=== PATIENT | female | born 1955 | race Caucasian/White ===

== ENCOUNTER 2023-02-28 09:22 | Emergency (ER) | payer MEDICARE ==
[~2023-02-28] VITALS: Ht 162.6 cm; Wt 56.7 kg
--- OUTSIDE RECORDS SUMMARY | ~2023-02-28 | XMS | Continuity of Care Document ---
Demographics + + + | Address | [address] | | | [place] [address] | + + + | Preferred Language | Unknown | + + + | Marital Status | | + + + | Scientologist Affiliation | Unknown | + + + | Race | White | + + + | Ethnic Group | Not or | + + + Author + + + | Author | [facility] | + + + | Organization | [facility] | + + + | Address | [address] | | | [place] [address] | + + + | Phone | | + + + Care Team Providers + + + + | Care Central Control Room Operator Name | Role | Phone | + + + + Unavailable | Unavailable | + + + + Unavailable | Unavailable | + + + + Allergies and Intolerances + + + + + + | date | description | facility | reaction | severity | + + + + + + | (no date) | No Known | [facility] | (no reaction) | (no severity) | | | Allergies | | | | + + + + + + Encounters No information. Functional Status No information. Immunizations + + + + | date | description | facility | + + + + | 2023-02-03 00:00 | Tdap | [facility] | + + + + Medications + + + + | date | description | facility | + + + + | 2023-02-03 00:00 | HYDROCODONE | [facility] | | | BIT/ACETAMINOPHEN | | + + + + Problems + + + + | date | description | facility | + + + + | 2022-05-28 15:50 | VENOUS INSUFFICIENCY | [facility] | | | (CHRONIC) (PERIPHERAL) | | + + + + | 2022-05-28 15:50 | PAIN IN LEFT LEG | [facility] | + + + + | 2023-02-03 00:00 | Fracture of neck of right | [facility] | | | humerus | | + + + + | 2023-02-03 00:00 | Skin tear of right forearm | [facility] | | | without complication | | + + + + | 2023-02-03 21:01 | PAIN IN RIGHT SHOULDER | [facility] | + + + + | 2023-02-03 21:01 | UNSP DISP FX OF SURGICAL | [facility] | | | NECK OF RIGHT HUMERUS, IN | | + + + + | 2023-02-03 21:01 | LACERATION W/O FOREIGN | [facility] | | | BODY OF RIGHT FOREARM, INIT | | | | | | + + + + | 2023-02-03 21:01 | FALL SAME LEV FROM | [facility] | | | SLIP/TRIP W STRIKE AGNST | | | | UNSP O | | + + + + Procedures No information. Results/Labs +--------+--------+ +---------+--------+---------+ | test | date | facility | value | unit | notes | +--------+--------+ +---------+--------+---------+ + + | Result panel 1 | + + + + + +--------+ + + | | 2023-02-03 | [facility] | 10.0 | (missing) | (missing) | | (unavailable | [facility] | | | | + + + +--------+ + + + + | Result panel 2 | + + + + + +--------+ + + | | 2023-02-03 | [facility] | 79.2 | (missing) | (missing) | | (unavailable | :: | [facility] | | | | + + + +--------+ + + + + | Result panel 3 | + + + + + +--------+ + + | | 2023-02-03 | [facility] | 12.0 | (missing) | (missing) | | (unavailable | ::07 | [facility] | | | | + + + +--------+ + + + + | Result panel 4 | + + + + + +-------+ + + | | 2023-02-03 | [facility] | 7.4 | (missing) | (missing) | | (unavailable | ::07 | [facility] | | | | + + + +-------+ + + + + | Result panel 5 | + + + + + +-------+ + + | | 2023-02-03 | [facility] | 0.0 | (missing) | (missing) | | (unavailable | ::07 [facility] | | | | + + + +-------+ + + + + | Result panel 6 | + + + + + +-------+ + + | | 2023-02-03 | [facility] | 1.4 | (missing) | (missing) | | (unavailable | ::07 [facility] | | | | + + + +-------+ + + + + | Result panel 7 | + + + + + +-------+---------+ + | | 2023-02-03 | [facility] | 131 | mg/dL | (missing) | | (unavailable | [facility] | | | | + + + +-------+---------+ + + + | Result panel 8 | + + + + + +-----+---------+ + | | 2023-02-03 | [facility] | 4 | mg/dL | (missing) | | (unavailable | [facility] | | | | + + + +-----+---------+ + + + | Result panel 9 | + + + + + +--------+---------+ + | | 2023-02-03 | [facility] | 0.51 | mg/dL | (missing) | | (unavailable | 21::07 | [facility] | | | | + + + +--------+---------+ + + + | Result panel 10 | + + + + + +-------+ + + | | 2023-02-03 | [facility] | 101 | (missing) | (missing) | | (unavailable | ::07 | [facility] | | | | + + + +-------+ + + + + | Result panel 11 | + + + + + +--------+ + + | | 2023-02-03 | [facility] | 7.84 | (missing) | (missing) | | (unavailable | ::07 | [facility] | | | | + + + +--------+ + + + + | Result panel 12 | + + + + + +--------+ + + | | 2023-02-03 | [facility] | 3.86 | (missing) | (missing) | | (unavailable | ::07 | [facility] | | | | + + + +--------+ + + + + | Result panel 13 | + + + + + +-------+ + + | | 2023-02-03 | [facility] | 128 | (missing) | (missing) | | (unavailable | ::07 | [facility] | | | | + + + +-------+ + + + + | Result panel 14 | + + + + + +-------+ + + | | 2023-02-03 | [facility] | 3.6 | (missing) | (missing) | | (unavailable | ::07 | [facility] | | | | + + + +-------+ + + + + | Result panel 15 | + + + + + +------+ + + | | 2023-02-03 | [facility] | 98 | (missing) | (missing) | | (unavailable | 21:05:07 [facility] | | | | + + + +------+ + + + + | Result panel 16 | + + + + + +------+ + + | | 2023-02-03 | [facility] | 23 | (missing) | (missing) | | (unavailable | 21:05:07 [facility] | | | | + + + +------+ + + + + | Result panel 17 | + + + + + +--------+ + + | | 2023-02-03 | [facility] | 10.6 | (missing) | (missing) | | (unavailable | 21:05:07 [facility] | | | | + + + +--------+ + + + + | Result panel 18 | + + + + + +-------+---------+ + | | 2023-02-03 | [facility] | 7.9 | mg/dL | (missing) | | (unavailable | 21:05:07 [facility] | | | | + + + +-------+---------+ + + + | Result panel 19 | + + + + + +-------+ + + | | 2023-02-03 | [facility] | 6.3 | (missing) | (missing) | | (unavailable | 21:05:07 [facility] | | | | + + + +-------+ + + + + | Result panel 20 | + + + + + +-------+ + + | | 2023-02-03 | [facility] | 2.3 | (missing) | (missing) | | (unavailable | 21:05:07 [facility] | | | | + + + +-------+ + + + + | Result panel 21 | + + + + + +-------+ + + | | 2023-02-03 | [facility] | 4.0 | (missing) | (missing) | | (unavailable | 21:05:07 [facility] | | | | + + + +-------+ + + + + | Result panel 22 | + + + + + +--------+ + + | | 2023-02-03 | [facility] | 0.58 | (missing) | (missing) | | (unavailable | 21:05:07 [facility] | | | | + + + +--------+ + + + + | Result panel 23 | + + + + + +--------+ + + | | 2023-02-03 | [facility] | 12.5 | (missing) | (missing) | | (unavailable | 21:05:07 [facility] | | | | + + + +--------+ + + + + | Result panel 24 | + + + + + +-------+ + + | | 2023-02-03 | [facility] | 0.3 | (missing) | (missing) | | (unavailable | 21:05:07 [facility] | | | | + + + +-------+ + + + + | Result panel 25 | + + + + + +------+ + + | | 2023-02-03 | [facility] | 56 | (missing) | (missing) | | (unavailable | 21[facility]05:07 [facility] | | | | + + + +------+ + + + + | Result panel 26 | + + + + + +------+ + + | | 2023-02-03 | [facility] | 27 | (missing) | (missing) | | (unavailable | 21[facility]05:07 [facility] | | | | + + + +------+ + + + + | Result panel 27 | + + + + + +-------+ + + | | 2023-02-03 | [facility] | 175 | (missing) | (missing) | | (unavailable | 21[facility]05:07 [facility] | | | | + + + +-------+ + + + + | Result panel 28 | + + + + + +-------+ + + | | 2023-02-03 | [facility] | 171 | (missing) | (missing) | | (unavailable | :05:07 [facility] | | | | + + + +-------+ + + + + | Result panel 29 | + + + + + +--------+ + + | | 2023-02-03 | [facility] | 38.0 | (missing) | (missing) | | (unavailable | 21:05:07 [facility] | | | | + + + +--------+ + + + + | Result panel 30 | + + + + + +--------+ + + | | 2023-02-03 | [facility] | 98.5 | (missing) | (missing) | | (unavailable | 21:05:07 [facility] | | | | + + + +--------+ + + + + | Result panel 31 | + + + + + +--------+ + + | | 2023-02-03 | [facility] | 32.4 | (missing) | (missing) | | (unavailable | [facility]05:07 [facility] | | | | + + + +--------+ + + + + | Result panel 32 | + + + + + +--------+ + + | | 2023-02-03 | [facility] | 32.9 | (missing) | (missing) | | (unavailable | 21[facility]05:07 [facility] | | | | + + + +--------+ + + + + | Result panel 33 | + + + + + +--------+ + + | | 2023-02-03 | [facility] | 14.3 | (missing) | (missing) | | (unavailable | [facility]05:07 [facility] | | | | + + + +--------+ + + + + | Result panel 34 | + + + + + +-------+ + + | | 2023-02-03 | [facility] | 183 | (missing) | (missing) | | (unavailable | [facility]05:07 [facility] | | | | + + + +-------+ + + Social History + + + + | date | description | facility | + + + + | 2023-02-03 00:00 | Unknown if ever smoked | [facility] | + + + + Vital Signs + + + +---------+ | date | measurement | value | units | + + + +---------+ | 2023-02-03 00:00 | BMI | 21.5 | kg/m2 | + + + +---------+ | 2023-02-03 00:00 | BP_diastolic | 109 | mmHg | + + + +---------+ | 2023-02-03 00:00 | BP_systolic | 167 | mmHg | + + + +---------+ | 2023-02-03 00:00 | heart_rate | 90 | /min | + + + +---------+ | 2023-02-03 00:00 | height_metric | 162.56 | cm | + + + +---------+ | 2023-02-03 00:00 | height_standard | 64 | in | + + + +---------+ | 2023-02-03 00:00 | o2_saturation | 94 | % | + + + +---------+ | 2023-02-03 00:00 | respiration_rate | 20 | /min | + + + +---------+ | 2023-02-03 00:00 | temperature_metric | 36.28 | C | | | | | | + + + +---------+ | 2023-02-03 00:00 | | 97.3 | F | | | temperature_standar | | | | | d | | | + + + +---------+ | 2023-02-03 00:00 | weight_metric | 56.7 | kg | + + + +---------+ | 2023-02-03 00:00 | weight_standard | 125 | lb | + + + +---------+"
--- OUTSIDE RECORDS SUMMARY | ~2023-02-28 | XMS | Continuity of Care Document ---
Demographics + + + | Address | [address] | | | [place] [address] | + + + | Preferred Language | Unknown | + + + | Marital Status | | + + + | Church Affiliation | Unknown | + + + | Race | White | + + + | Ethnic Group | Not or | + + + Author + + + | Author | [facility] | + + + | Organization | [facility] | + + + | Address | [address] | | | [place] [address] | + + + | Phone | | + + + Care Team Providers + + + + | Care General Dentist Name | Role | Phone | + [...] | 2023-02-03 00:00 | Tdap | [facility] | + + + + Medications + + + + | date | description | facility | + + + + | 2023-02-03 00:00 | HYDROCODONE | [facility] | | | BIT/ACETAMINOPHEN | | + [...] | Fracture of neck of right | [facility] | | | humerus | | + + + + | 2023-02-03 00:00 | Skin tear of right forearm | [facility] | | | without complication | [...] | Unknown if ever smoked | [facility] | + + + + Vital Signs [...]
[~2023-02-28 09:22] MED LIST: HYDROCODON-ACE1 EA10 PO
--- OUTSIDE RECORDS SUMMARY | 2023-02-28 09:24 | XMS ---
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 - [facility] - 2 Visits in 30 Days CARE PROVIDERS There are no care providers on record at this time. Karina has no Care Guidelines for this patient. [facility] V[facility] (12 MO.) [facility] NOTE: Visits indicate total known visits. ED/C VISIT TRACKING (12 MO.) 02[facility]23 09[facility] COMPLAINT: - R ARM WOUND/SWELLING 02/03/2023 21:[address] [facility] TYPE: Emergency COMPLAINT: - SHOULDER INJURY DIAGNOSES: - Fall on same level from slipping, tripping and stumbling with subsequent striking against unspecified object, initial encounter - Laceration without foreign body of right forearm, initial encounter - Pain in right shoulder - Unspecified displaced fracture of surgical neck of right humerus, initial encounter for closed fracture INPATIENT VISIT TRACKING (12 MO.) No inpatient visits to display in this time frame [id number]
[2023-02-28] MEDS ORDERED: CEPHALEXIN500 M1 PO (12:17)
[2023-02-28 12:35] VITALS: BP 168/90
== END 2023-02-28 12:41 | disposition home or self-care (01) ==
LOC: ED 09:22
DX: L03.113 Cellulitis of right upper limb (principal); Z79.899 Other long term (current) drug therapy
CPT/HCPCS: 93971; 99283-25